=== PATIENT | male | born 1965 | race Hispanic/Latino ===

== ENCOUNTER → 2021-05-31 | Outpatient (CLI) | payer BC ==
[~2021-05-31] MED LIST: ALBUMIN (HUMAN) 25% 200 ML IV SCH; LIDOCAINE HCL MPF 1% 5ML VIAL ONE
[2021-05-31 15:25] LABS: APPEARANCE BODY FLUID SLIGHTLY CLOUDY (CLEAR); COLOR,BODY FLUID YELLOW (LT YELLOW); SPECIMENTYPE,BODY FLUID ASCITES
[2021-05-31 15:26] LABS: BODY FLUID RBC 485 /cu. mm.; BODY FLUID WBC 25 /cu. mm.; TOTAL VOLUME,BODY FLUID 10024 mL
[2021-05-31 16:07] LABS: BF LYMPHOCYTE 19 %; BF MESOTHELIAL 1 %; BF MONOCYTE 2 %; BF OTHER CELLS 4
== END | disposition home or self-care (01) ==
LOC: RAH 07:29
PROVIDERS: ATTEND Internal Medicine Gastroenterology
DX: K70.31 Alcoholic cirrhosis of liver with ascites (principal); K76.6 Portal hypertension; Z79.899 Other long term (current) drug therapy; Z79.01 Long term (current) use of anticoagulants
CPT/HCPCS: 36415; 49083; 85730; 87071; 87205; 89051; C1729; J3490 ×2; 96365

== ENCOUNTER 2021-11-24 11:16 | Emergency (ER) | payer BC ==
[~2021-11-24] VITALS: Ht 162.6 cm; Wt 90.7 kg
[~2021-11-24 11:16] MED LIST changes: -ALBUMIN (HUMAN) 25% 200 ML IV SCH; +LACT10SO32 PO; -LIDOCAINE HCL MPF 1% 5ML VIAL ONE
[2021-11-24 11:50] LABS: BASOPHILS % (AUTO) 0.6 % (0.0-5.0); EOSINOPHILS % (AUTO) 4.3 % (0.0-8.0); HEMATOCRIT 30.7 % (42-54); LYMPHOCYTES % (AUTO) 20.6 % (21.0-51.0); MEAN CORPUSCULAR HEMOGLOBIN 37.8 pg (27.0-33.0); MEAN CORPUSCULAR HGB CONC 34.9 g/dL (32.0-36.0); MEAN CORPUSCULAR VOLUME 108.5 fL (79-99); MONOCYTES % (AUTO) 9.9 % (3.0-13.0); NEUTROPHILS % (AUTO) 64.3 % (40.0-77.0); PLATELET COUNT (AUTO) 44 K/uL (130-400); RED BLOOD CELL COUNT(AUTO) 2.83 MIL/uL (4.50-6.20); RED CELL DISTRIBUTION WIDTH 17.6 % (11.0-15.5); WHITE BLOOD COUNT (AUTO) 3.5 K/uL (4.8-10.8)
[2021-11-24 11:59] LABS: INR 2.14 (0.85-1.15); PROTHROMBIN TIME 22.3 SEC (9.6-11.6)
[2021-11-24 12:00] LABS: PARTIAL THROMBOPLASTIN TIME 48.5 SEC (26.3-35.5)
[2021-11-24 12:08] LABS: CREATININE 0.8 mg/dL (0.5-1.5); POTASSIUM 3.5 mmol/L (3.5-5.1)
[2021-11-24 12:13] LABS: ALBUMIN 1.8 g/dL (3.5-5.0); TOTAL PROTEIN, SERUM 8.3 g/dL (6.0-8.3)
[2021-11-24 12:22] LABS: B-TYPE NATRIURETIC PEPTIDE 37 pg/mL (0-100)
[2021-11-24 13:07] LABS: PLATELET MORPHOLOGY COMMENT MARKED DECREASE
[2021-11-24] MEDS ORDERED: ALBUMIN (HUMAN) 25% 200 ML IV ONE (13:57)
[2021-11-24] MEDS ORDERED: SODIUM BICARB 50MEQ 50ML VIAL 50 ML ONE (13:57)
[2021-11-24] MEDS ORDERED: ALBUMIN (HUMAN) 25% 300 ML IV ONE (14:30)
[2021-11-24] MEDS ORDERED: CIPR-279 PO (16:24)
[2021-11-24 16:25] VITALS: BP 136/74
[2021-11-24 18:13] LABS: SPECIMENTYPE,BODY FLUID ASCITES
[2021-11-24 18:14] LABS: APPEARANCE BODY FLUID SLIGHTLY CLOUDY (CLEAR); BODY FLUID RBC 692 /cu. mm.; BODY FLUID WBC 67 /cu. mm.; COLOR,BODY FLUID YELLOW (LT YELLOW); TOTAL VOLUME,BODY FLUID 9200 mL
[2021-11-24 18:19] LABS: BF LYMPHOCYTE 16 %; BF MONOCYTE 1 %; BF OTHER CELLS 5
== END 2021-11-24 16:28 | disposition left against medical advice (07) ==
LOC: EDH 11:16
DX: K76.82 Hepatic encephalopathy (principal); K74.60 Unspecified cirrhosis of liver; R18.8 Other ascites; I10 Essential (primary) hypertension
CPT/HCPCS: 49083; 99285; 96365; 71045; 84484; 80053; 83880; 85025; 89051; 85610; 85730; 87071; 87205; 36415; 93005; P9046; J3490; C1729

== ENCOUNTER 2021-12-27 13:23 | Observation (INO) | payer BC ==
[~2021-12-27] VITALS: Ht 165.1 cm; Wt 72.9 kg
[~2021-12-27 13:23] MED LIST changes: +CIPR-279 PO
[2021-12-27 14:30] LABS: BASOPHILS % (AUTO) 0.6 % (0.0-5.0); EOSINOPHILS % (AUTO) 1.8 % (0.0-8.0); HEMATOCRIT 32.6 % (42-54); MEAN CORPUSCULAR HEMOGLOBIN 37.1 pg (27.0-33.0); MEAN CORPUSCULAR HGB CONC 35.3 g/dL (32.0-36.0); MEAN CORPUSCULAR VOLUME 105.2 fL (79-99); MONOCYTES % (AUTO) 8.6 % (3.0-13.0); NEUTROPHILS % (AUTO) 80.4 % (40.0-77.0); PLATELET COUNT (AUTO) 74 K/uL (130-400); RED CELL DISTRIBUTION WIDTH 15.2 % (11.0-15.5); WHITE BLOOD COUNT (AUTO) 5.1 K/uL (4.8-10.8)
[2021-12-27 14:38] LABS: CREATININE 0.9 mg/dL (0.5-1.5); POTASSIUM 4.5 mmol/L (3.5-5.1)
[2021-12-27 14:43] LABS: ALBUMIN 2.3 g/dL (3.5-5.0); TOTAL PROTEIN, SERUM 9.6 g/dL (6.0-8.3)
[2021-12-27] MEDS ORDERED: LACTULOSE 20 GM/30 ML UDCUP PO ONE (15:30)
[2021-12-27] MEDS ORDERED: 0.9%NACL 1000ML 1,000 ML IV ONE (15:30)
[2021-12-27] MEDS ORDERED: NITROGLYCERIN 0.4 MG SL TAB SL PRN (16:00)
[2021-12-27] MEDS ORDERED: DIPHENHYDRAMINE HCL 25 MG CAPSULE PO PRN (16:00)
[2021-12-27] MEDS ORDERED: ACETAMINOPHEN 325 MG TAB PO PRN ×2 (16:00)
[2021-12-27] MEDS ORDERED: LACTULOSE 20 GM/30 ML UDCUP PO PRN ×2 (16:00)
[2021-12-27] MEDS ORDERED: MAG/ALUM/SIMETH 30 ML UDCUP PO PRN (16:00)
[2021-12-27] MEDS ORDERED: DiphenhydrAMINE HCL 50 MG/ML VIAL IV PRN (16:00)
[2021-12-27] MEDS ORDERED: POTASSIUM CHLORIDE 10% ELIXIR 20 MEQ/15 ML UDCUP PO PRN (16:00)
[2021-12-27] MEDS ORDERED: LIDOCAINE HCL-MPF 1% 2ML VIAL IV PRN (16:00)
[2021-12-27] MEDS ORDERED: KCL 20 MEQ ERTAB PO PRN (16:00)
[2021-12-27] MEDS ORDERED: GUAIFENESIN-DM 200/20 MG 10 ML PO PRN (16:00)
[2021-12-27] MEDS ORDERED: POTASSIUM CHLORIDE 20MEQ/100ML 100 ML IV PRN (16:00)
[2021-12-27] MEDS ORDERED: ONDANSETRON 4MG INJ IV PRN (16:00)
[2021-12-27 17:57] LABS: APPEARANCE,URINE CLEAR (CLEAR); BILIRUBIN,URINE NEGATIVE (NEGATIVE); COLOR,URINE YELLOW (YELLOW); GLUCOSE, URINE (UA) NEGATIVE (NEGATIVE); KETONES,URINE NEGATIVE (NEGATIVE); LEUKOCYTE ESTERASE ,URINE NEGATIVE Leu/uL (NEGATIVE); NITRATE,URINE NEGATIVE (NEGATIVE); OCCULT BLOOD,URINE NEGATIVE (NEGATIVE); PROTEIN,URINE NEGATIVE (NEGATIVE); UROBILINOGEN,URINE 0.2 mg/dL (0.2-1.0)
[2021-12-27 18:06] LABS: BACTERIA,URINE RARE /HPF (None Seen); MUCUS,URINE RARE LPF (None Seen); SQUAMOUS EPITHELIAL CELL,UR RARE /HPF (0-2)
[2021-12-27] MEDS: MAGNESIUM 2GM PREMIX 50ML 50 ML IV PRN (18:43)
[2021-12-27 19:54] LABS: INR 1.82 (0.85-1.15); PROTHROMBIN TIME 19.2 SEC (9.6-11.6)
[2021-12-27 19:55] LABS: PARTIAL THROMBOPLASTIN TIME 47.3 SEC (26.3-35.5)
[2021-12-27] MEDS: FAMOTIDINE 20MG TAB PO SCH (21:00)
[2021-12-27] MEDS: RIFAXIMIN 200 MG TABLET PO SCH (21:04)
[2021-12-27] MEDS: FAMOTIDINE 20MG VIAL IV SCH (21:04)
[2021-12-27 23:10] VITALS: BP 129/75
[2021-12-28 03:50] VITALS: BP 136/72
[2021-12-28 04:59] LABS: BASOPHILS % (AUTO) 0.5 % (0.0-5.0); EOSINOPHILS % (AUTO) 2.5 % (0.0-8.0); HEMATOCRIT 27.5 % (42-54); LYMPHOCYTES % (AUTO) 8.3 % (21.0-51.0); MEAN CORPUSCULAR HEMOGLOBIN 36.5 pg (27.0-33.0); MEAN CORPUSCULAR HGB CONC 34.9 g/dL (32.0-36.0); MEAN CORPUSCULAR VOLUME 104.6 fL (79-99); MONOCYTES % (AUTO) 12.4 % (3.0-13.0); NEUTROPHILS % (AUTO) 75.6 % (40.0-77.0); PLATELET COUNT (AUTO) 60 K/uL (130-400); RED BLOOD CELL COUNT(AUTO) 2.63 MIL/uL (4.50-6.20); RED CELL DISTRIBUTION WIDTH 15.4 % (11.0-15.5); WHITE BLOOD COUNT (AUTO) 4.3 K/uL (4.8-10.8)
[2021-12-28 05:20] LABS: ALBUMIN 1.9 g/dL (3.5-5.0); CREATININE 0.7 mg/dL (0.5-1.5); MAGNESIUM 1.6 mg/dL (1.80-2.40); PHOSPHORUS 2.8 mg/dL (2.5-4.9); POTASSIUM 4.6 mmol/L (3.5-5.1); TOTAL PROTEIN, SERUM 8.2 g/dL (6.0-8.3)
[2021-12-28] MEDS: MAGNESIUM 2GM PREMIX 50ML 50 ML IV PRN (06:19)
[2021-12-28 08:00] VITALS: BP 121/75
[2021-12-28] MEDS: FAMOTIDINE 20MG TAB PO SCH ×2 (08:26→22:31)
[2021-12-28] MEDS: FUROSEMIDE 40 MG TABLET PO SCH (08:27)
[2021-12-28] MEDS: CYANOCOBALAMIN (VITAMIN B-12) 1,000 MCG TABLET PO SCH (08:27)
[2021-12-28] MEDS: SPIRONOLACTONE 25 MG TAB PO SCH (08:27)
[2021-12-28] MEDS: Vitamin B Complex/Vit C/Folic Acid PO SCH (08:27)
[2021-12-28] MEDS: FAMOTIDINE 20MG VIAL IV SCH (09:00)
[2021-12-28] MEDS: RIFAXIMIN 200 MG TABLET PO SCH ×2 (11:18→22:31)
[2021-12-28 12:00] VITALS: BP 131/69
[2021-12-28] MEDS: LACTULOSE 20 GM/30 ML UDCUP PO SCH ×2 (14:25→22:31)
[2021-12-28 16:00] VITALS: BP 110/62
[2021-12-28 20:30] VITALS: BP 118/62
[2021-12-28 23:37] VITALS: BP 96/48
[2021-12-29 02:55] VITALS: BP 119/66
[2021-12-29 03:48] LABS: BASOPHILS % (AUTO) 0.5 % (0.0-5.0); EOSINOPHILS % (AUTO) 2.1 % (0.0-8.0); HEMATOCRIT 26.8 % (42-54); LYMPHOCYTES % (AUTO) 8.6 % (21.0-51.0); MEAN CORPUSCULAR HEMOGLOBIN 36.7 pg (27.0-33.0); MEAN CORPUSCULAR HGB CONC 35.1 g/dL (32.0-36.0); MEAN CORPUSCULAR VOLUME 104.7 fL (79-99); NEUTROPHILS % (AUTO) 72.5 % (40.0-77.0); PLATELET COUNT (AUTO) 49 K/uL (130-400); RED BLOOD CELL COUNT(AUTO) 2.56 MIL/uL (4.50-6.20); RED CELL DISTRIBUTION WIDTH 15.2 % (11.0-15.5); WHITE BLOOD COUNT (AUTO) 3.8 K/uL (4.8-10.8)
[2021-12-29 04:06] LABS: ALBUMIN 1.9 g/dL (3.5-5.0); CREATININE 0.7 mg/dL (0.5-1.5); POTASSIUM 4.2 mmol/L (3.5-5.1); TOTAL PROTEIN, SERUM 7.8 g/dL (6.0-8.3)
[2021-12-29] MEDS: FAMOTIDINE 20MG VIAL IV SCH (08:12)
[2021-12-29 08:22] VITALS: BP 124/67
[2021-12-29] MEDS: CYANOCOBALAMIN (VITAMIN B-12) 1,000 MCG TABLET PO SCH (10:10)
[2021-12-29] MEDS: Vitamin B Complex/Vit C/Folic Acid PO SCH (10:10)
[2021-12-29] MEDS: RIFAXIMIN 200 MG TABLET PO SCH (10:10)
[2021-12-29] MEDS: LACTULOSE 20 GM/30 ML UDCUP PO SCH (10:10)
[2021-12-29] MEDS: SPIRONOLACTONE 25 MG TAB PO SCH (10:10)
[2021-12-29] MEDS: FAMOTIDINE 20MG TAB PO SCH (10:10)
[2021-12-29] MEDS: FUROSEMIDE 40 MG TABLET PO SCH (10:10)
[2021-12-29] MEDS ORDERED: FURO40TA7 PO (10:43)
[2021-12-29] MEDS ORDERED: LACT PO (10:43)
[2021-12-29] MEDS ORDERED: Folic Acid/Vitamin B Comp W-C PO (10:43)
[2021-12-29] MEDS ORDERED: RIFA200T2 PO (10:43)
[2021-12-29] MEDS ORDERED: SPIR25TA6 PO (10:43)
[2021-12-29] MEDS ORDERED: CYAN-52 PO (10:43)
[2021-12-29 12:15] VITALS: BP 113/74
== END 2021-12-29 13:40 | disposition home or self-care (01) ==
LOC: EDH 13:23 → EDHIP 15:53 → 3DH 23:10
PROVIDERS: ADMIT Internal Medicine; ATTEND Internal Medicine
DX: K76.82 Hepatic encephalopathy (principal); K70.30 Alcoholic cirrhosis of liver without ascites; D64.9 Anemia, unspecified; I10 Essential (primary) hypertension; E87.1 Hypo-osmolality and hyponatremia; J90 Pleural effusion, not elsewhere classified; J98.11 Atelectasis; K08.9 Disorder of teeth and supporting structures, unspecified; Z87.891 Personal history of nicotine dependence; Z79.899 Other long term (current) drug therapy
CPT/HCPCS: 96361; 96365; 96366; 96375; 99285; 83735 ×2; 80053 ×3; 82140 ×2; 85025 ×3; 85610; 85730; 81001; 36415 ×3; 71045; 70450; 72125; 70486; 93005; 96376; 84100; 97161; G0378 ×46; J3475 ×2; J3490 ×2; J7030

== ENCOUNTER 2022-03-26 07:39 | Emergency (ER) | payer BC, OTHER ==
[~2022-03-26] VITALS: Ht 162.6 cm; Wt 79.5 kg
[~2022-03-26 07:39] MED LIST changes: -CIPR-279 PO; +CYAN-52 PO; +FURO40TA7 PO; +Folic Acid/Vitamin B Comp W-C PO; -LACT10SO32 PO; +LACT10SO5 PO; +SPIR100T5 PO
[2022-03-26 08:23] LABS: BASOPHILS % (AUTO) 0.4 % (0.0-5.0); HEMATOCRIT 24.7 % (42-54); LYMPHOCYTES % (AUTO) 6.8 % (21.0-51.0); MEAN CORPUSCULAR HEMOGLOBIN 37.8 pg (27.0-33.0); MEAN CORPUSCULAR HGB CONC 34.4 g/dL (32.0-36.0); MEAN CORPUSCULAR VOLUME 109.8 fL (79-99); MONOCYTES % (AUTO) 13.8 % (3.0-13.0); NEUTROPHILS % (AUTO) 76.1 % (40.0-77.0); PLATELET COUNT (AUTO) 81 K/uL (130-400); RED BLOOD CELL COUNT(AUTO) 2.25 MIL/uL (4.50-6.20); RED CELL DISTRIBUTION WIDTH 16.4 % (11.0-15.5); WHITE BLOOD COUNT (AUTO) 8.1 K/uL (4.8-10.8)
[2022-03-26 08:33] LABS: ALBUMIN 1.6 g/dL (3.5-5.0); CREATININE 0.8 mg/dL (0.5-1.5); POTASSIUM 4.5 mmol/L (3.5-5.1)
[2022-03-26 08:36] LABS: TOTAL PROTEIN, SERUM 7.2 g/dL (6.0-8.3)
[2022-03-26 08:47] LABS: INR 1.86 (0.85-1.15); PROTHROMBIN TIME 19.6 SEC (9.6-11.6)
[2022-03-26 12:41] VITALS: BP 119/56
== END 2022-03-26 12:44 | disposition home or self-care (01) ==
LOC: EDH 07:39
DX: E87.1 Hypo-osmolality and hyponatremia (principal); R18.8 Other ascites; K74.60 Unspecified cirrhosis of liver; Z79.899 Other long term (current) drug therapy
CPT/HCPCS: 36415; 80053; 85025; 85610

== ENCOUNTER → 2022-03-30 | Outpatient (CLI) | payer OTHER ==
[~2022-03-30] MED LIST changes: +ALBUMIN (HUMAN) 25% 200 ML IV SCH
[2022-03-30 11:43] LABS: INR 1.84 (0.85-1.15); PROTHROMBIN TIME 19.4 SEC (9.6-11.6)
[2022-03-30 11:44] LABS: PARTIAL THROMBOPLASTIN TIME 55.8 SEC (26.3-35.5)
[2022-03-30 17:29] LABS: BF LYMPHOCYTE 42 %; BF MESOTHELIAL 31 %
[2022-03-30 18:06] LABS: BODY FLUID RBC 935 /cu. mm.; BODY FLUID WBC 202 /cu. mm.
[2022-03-30 18:07] LABS: APPEARANCE BODY FLUID SLIGHTLY CLOUDY (CLEAR); COLOR,BODY FLUID YELLOW (LT YELLOW); SPECIMENTYPE,BODY FLUID ASCITES
[2022-03-30 18:08] LABS: TOTAL VOLUME,BODY FLUID 9000 mL
== END | disposition home or self-care (01) ==
LOC: RAH 10:29
PROVIDERS: ATTEND Internal Medicine Gastroenterology
DX: K70.31 Alcoholic cirrhosis of liver with ascites (principal); K76.6 Portal hypertension; Z79.01 Long term (current) use of anticoagulants; Z79.899 Other long term (current) drug therapy; Z87.891 Personal history of nicotine dependence
CPT/HCPCS: 49083; 89051; 85610; 85730; 87071; 87205; 36415; P9046; C1729

== ENCOUNTER 2022-04-21 04:57 | Inpatient (IN) | payer BC, OTHER ==
[~2022-04-21] VITALS: Ht 162.6 cm; Wt 75.7 kg
[2022-04-21] VITALS (13 sets, daily range): BP systolic 72–156; BP diastolic 40–103
[~2022-04-21 04:57] MED LIST changes: -ALBUMIN (HUMAN) 25% 200 ML IV SCH
[2022-04-21 05:39] LABS: BASOPHILS % (AUTO) 0.1 % (0.0-5.0); EOSINOPHILS % (AUTO) 1.6 % (0.0-8.0); HEMATOCRIT 24.2 % (42-54); LYMPHOCYTES % (AUTO) 4.9 % (21.0-51.0); MEAN CORPUSCULAR HEMOGLOBIN 38.5 pg (27.0-33.0); MEAN CORPUSCULAR HGB CONC 34.7 g/dL (32.0-36.0); MONOCYTES % (AUTO) 6.9 % (3.0-13.0); NEUTROPHILS % (AUTO) 85.6 % (40.0-77.0); PLATELET COUNT (AUTO) 91 K/uL (130-400); RED BLOOD CELL COUNT(AUTO) 2.18 MIL/uL (4.50-6.20); RED CELL DISTRIBUTION WIDTH 15.7 % (11.0-15.5); WHITE BLOOD COUNT (AUTO) 7.5 K/uL (4.8-10.8)
[2022-04-21 05:42] LABS: APPEARANCE,URINE TURBID (CLEAR); BILIRUBIN,URINE 4 mg/dL (NEGATIVE); COLOR,URINE DARK-YELLOW (YELLOW); GLUCOSE, URINE (UA) NEGATIVE (NEGATIVE); KETONES,URINE NEGATIVE (NEGATIVE); LEUKOCYTE ESTERASE ,URINE 75 Leu/uL (NEGATIVE); NITRATE,URINE NEGATIVE (NEGATIVE); OCCULT BLOOD,URINE SMALL (NEGATIVE); PH,URINE 5.5 (5.0-8.0); PROTEIN,URINE 70 mg/dL (NEGATIVE)
[2022-04-21 05:53] LABS: ALBUMIN 1.6 g/dL (3.5-5.0); CREATININE 1.1 mg/dL (0.5-1.5); POTASSIUM 5.6 mmol/L (3.5-5.1)
[2022-04-21 05:57] LABS: BACTERIA,URINE RARE /HPF (None Seen); MUCUS,URINE MANY LPF (None Seen); SQUAMOUS EPITHELIAL CELL,UR RARE /HPF (0-2)
[2022-04-21 06:00] LABS: TOTAL PROTEIN, SERUM 6.6 g/dL (6.0-8.3)
[2022-04-21 06:18] LABS: INR 1.84 (0.85-1.15); PROTHROMBIN TIME 19.4 SEC (9.6-11.6)
[2022-04-21 06:20] LABS: PARTIAL THROMBOPLASTIN TIME 29.7 SEC (26.3-35.5)
[2022-04-21 07:17] LABS: BAND NEUTROPHILS % (MANUAL) 3 % (0-2); BASOPHILS % (MANUAL) 1 % (0-2); EOSINOPHILS % (MANUAL) 1 % (1-6); LYMPHOCYTES % (MANUAL) 3 % (22-44); MAN.DIFF COMMENT-IMPRESSION MANUAL DIFFERENTIAL; MONOCYTES % (MANUAL) 7 % (2-9); PLATELET MORPHOLOGY COMMENT DECREASED; SEGMENTED NEUTROPHILS % 85 % (40-70)
[2022-04-21] MEDS ORDERED: LACTULOSE 20 GM/30 ML UDCUP PO PRN ×3 (08:30→10:00)
[2022-04-21] MEDS ORDERED: GUAIFENESIN-DM 200/20 MG 10 ML PO PRN (08:30)
[2022-04-21] MEDS ORDERED: NITROGLYCERIN 0.4 MG SL TAB SL PRN (08:30)
[2022-04-21] MEDS ORDERED: DiphenhydrAMINE HCL 50 MG/ML VIAL IV PRN (08:30)
[2022-04-21] MEDS ORDERED: ONDANSETRON 4MG INJ IV PRN (08:30)
[2022-04-21] MEDS ORDERED: LIDOCAINE HCL-MPF 1% 2ML VIAL IV PRN (08:30)
[2022-04-21] MEDS ORDERED: POTASSIUM CHLORIDE 20MEQ/100ML 100 ML IV PRN (08:30)
[2022-04-21] MEDS ORDERED: MAGNESIUM 2GM PREMIX 50ML 50 ML IV PRN (08:30)
[2022-04-21] MEDS ORDERED: MAG/ALUM/SIMETH 30 ML UDCUP PO PRN (08:30)
[2022-04-21] MEDS ORDERED: DIPHENHYDRAMINE HCL 25 MG CAPSULE PO PRN (08:30)
[2022-04-21] MEDS ORDERED: ACETAMINOPHEN 325 MG TAB PO PRN ×2 (08:30)
[2022-04-21] MEDS ORDERED: KCL 20 MEQ ERTAB PO PRN (08:30)
[2022-04-21] MEDS ORDERED: FAMOTIDINE 20MG VIAL IV ONE (08:50)
[2022-04-21] MEDS ORDERED: 0.9%NACL 1000ML 1,000 ML IV ONE (08:50)
[2022-04-21] MEDS ORDERED: FUROSEMIDE 20MG VIAL ONE (08:50)
[2022-04-21] MEDS ORDERED: CEFTRIAXONE 1G VIAL ONE (08:50)
[2022-04-21] MEDS: FUROSEMIDE 40 MG TABLET PO SCH (09:00)
[2022-04-21] MEDS: FAMOTIDINE 20MG TAB PO SCH ×2 (09:00→20:38)
[2022-04-21] MEDS: 0.9%NACL 1000ML 1,000 ML IV SCH ×2 (09:10→16:47)
[2022-04-21] MEDS: FAMOTIDINE 20MG VIAL IV SCH ×2 (09:11→20:51)
[2022-04-21] MEDS: CEFTRIAXONE 1G VIAL IV SCH (09:11)
[2022-04-21] MEDS ORDERED: FUROSEMIDE 40MG VIAL ONE (09:15)
[2022-04-21] MEDS ORDERED: ALBUMIN (HUMAN) 25% 100 ML IV ONE ×2 (09:57→17:00)
[2022-04-21] MEDS ORDERED: LACTULOSE 20 GM/30 ML UDCUP ONE (09:59)
[2022-04-21] MEDS ORDERED: ALBUMIN (HUMAN) 25% 100 ML IV PRN (10:00)
[2022-04-21] MEDS: RIFAXIMIN 200 MG TABLET PO SCH ×2 (10:04→20:58)
[2022-04-21 10:29] LABS: AMPHET/METH SCREEN,URINE NEGATIVE (NEGATIVE); BARBITURATE SCREEN, URINE NEGATIVE (NEGATIVE); BENZODIAZEPINES SCREEN,URINE NEGATIVE (NEGATIVE); CANNABINOID SCREEN,URINE NEGATIVE (NEGATIVE); COCAINE SCREEN,URINE NEGATIVE (NEGATIVE); OPIATE SCREEN,URINE NEGATIVE (NEGATIVE); PHENCYCLIDINE SCREEN,URINE NEGATIVE (NEGATIVE)
[2022-04-21] MEDS ORDERED: ROCURONIUM BROMIDE 10MG/1ML 5ML VL IV ONE (10:32)
[2022-04-21] MEDS ORDERED: SUCCINYLCHOLINE CHLORIDE 20 MG/ML 10 ML VIAL IVP ONE (10:32)
[2022-04-21 10:36] LABS: CREATININE 1.3 mg/dL (0.5-1.5); POTASSIUM 5.4 mmol/L (3.5-5.1)
[2022-04-21 18:22] LABS: ALBUMIN,BODY FLUID 0.1 g/dL
[2022-04-21 19:57] LABS: BODY FLUID RBC 3256 /cu. mm.; BODY FLUID WBC 8899 /cu. mm.
[2022-04-21 19:58] LABS: APPEARANCE BODY FLUID CLOUDY (CLEAR); COLOR,BODY FLUID DARK YELLOW (LT YELLOW); SPECIMENTYPE,BODY FLUID ASCITES; TOTAL VOLUME,BODY FLUID 6000 mL
[2022-04-21 20:16] LABS: BF LYMPHOCYTE 5 %; BF MONOCYTE 1 %; BF OTHER CELLS 1
[2022-04-21] MEDS: LACTULOSE 20 GM/30 ML UDCUP PO SCH (20:51)
[2022-04-21] MEDS: ALBUMIN (HUMAN) 25% 100 ML IV SCH (23:30)
[2022-04-21] MEDS ORDERED: PHARMACY COMMUNICATION MISC SCH (23:30)
[2022-04-22] VITALS (48 sets, daily range): BP systolic 65–145; BP diastolic 32–110
[2022-04-22] MEDS: 0.9%NACL 1000ML 1,000 ML IV SCH ×2 (01:26→08:24)
[2022-04-22 05:49] LABS: BASOPHILS % (AUTO) 0.1 % (0.0-5.0); EOSINOPHILS % (AUTO) 0.1 % (0.0-8.0); HEMATOCRIT 21.7 % (42-54); LYMPHOCYTES % (AUTO) 3.2 % (21.0-51.0); MEAN CORPUSCULAR HEMOGLOBIN 38.9 pg (27.0-33.0); MEAN CORPUSCULAR HGB CONC 33.2 g/dL (32.0-36.0); MEAN CORPUSCULAR VOLUME 117.3 fL (79-99); MONOCYTES % (AUTO) 7.7 % (3.0-13.0); NEUTROPHILS % (AUTO) 88.2 % (40.0-77.0); PLATELET COUNT (AUTO) 71 K/uL (130-400); RED BLOOD CELL COUNT(AUTO) 1.85 MIL/uL (4.50-6.20); RED CELL DISTRIBUTION WIDTH 15.8 % (11.0-15.5); WHITE BLOOD COUNT (AUTO) 14.5 K/uL (4.8-10.8)
[2022-04-22 06:26] LABS: ALBUMIN 2.3 g/dL (3.5-5.0); CREATININE 1.5 mg/dL (0.5-1.5); MAGNESIUM 1.8 mg/dL (1.80-2.40); PHOSPHORUS 6.8 mg/dL (2.5-4.9); POTASSIUM 5.7 mmol/L (3.5-5.1); TOTAL PROTEIN, SERUM 5.9 g/dL (6.0-8.3)
[2022-04-22 07:05] LABS: % IRON SATURATION 76.4 % (30-44)
[2022-04-22] MEDS ORDERED: DEXTROSE 50%-WATER 50 ML DISP.SYRIN IV PRN (08:00)
[2022-04-22] MEDS ORDERED: GLUCAGON 1MG KIT 1 MG ML IM PRN (08:00)
[2022-04-22] MEDS ORDERED: DEXTROSE 5 %-0.45 % NACL 1,000 ML IV SCH (08:00)
[2022-04-22] MEDS: FUROSEMIDE 40 MG TABLET PO SCH (10:03)
[2022-04-22] MEDS: RIFAXIMIN 200 MG TABLET PO SCH ×2 (10:03→21:00)
[2022-04-22] MEDS: FAMOTIDINE 20MG VIAL IV SCH (10:04)
[2022-04-22] MEDS: LACTULOSE 20 GM/30 ML UDCUP PO SCH (10:04)
[2022-04-22] MEDS: HYDROCORTISONE SOD SUCCINATE 100 MG/2 ML VIAL IV SCH ×2 (10:04→10:13)
[2022-04-22] MEDS: CEFTRIAXONE 1G VIAL IV SCH (10:13)
[2022-04-22] MEDS: FAMOTIDINE 20MG TAB PO SCH (10:13)
[2022-04-22] MEDS: ALBUMIN (HUMAN) 25% 100 ML IV SCH ×3 (10:25→23:34)
[2022-04-22] MEDS ORDERED: ALBUMIN (HUMAN) 25% 100 ML IV PRN (10:30)
[2022-04-22] MEDS ORDERED: FUROSEMIDE 40MG VIAL IV STA (17:21)
[2022-04-22] MEDS ORDERED: DEXTROSE 10% IV SCH (17:30)
[2022-04-22] MEDS ORDERED: WATER IV SCH ×2 (17:30→21:30)
[2022-04-22] MEDS ORDERED: SODIUM CL IV SCH (17:30)
[2022-04-22 18:14] LABS: ABG BASE EXCESS -15.5 mmol/L (-2.0-3.0); ABG HCO3 15.4 mmol/L (21.0-28.0); ABG OXYGEN SATURATION 91.4 % (95.0-99.0); ABG PCO2 57 mmHg (35-48)
[2022-04-22] MEDS ORDERED: PHARMACY COMMUNICATION MISC SCH (19:00)
[2022-04-22] MEDS ORDERED: VANCOMYCIN 1G VIAL IVPB ONE (19:00)
[2022-04-22] MEDS ORDERED: DEXTROSE 5%-WATER 1,000 ML IV SCH (19:00)
[2022-04-22] MEDS ORDERED: LIDOCAINE HCL MPF 1% 5ML VIAL ONE ×2 (19:20→19:25)
[2022-04-22] MEDS ORDERED: VANCOMYCIN 1.75 GM/250 ML BAG 250 ML IV ONE (19:30)
[2022-04-22] MEDS ORDERED: VANCOMYCIN PROTOCOL PER PHARMACY IV SCH (19:30)
[2022-04-22] MEDS ORDERED: SODIUM BICARB 50MEQ 50ML VIAL IV ONE (19:30)
[2022-04-22] MEDS ORDERED: EPINEPHRINE PF 1MG (1:1,000) 1 MG/ML AMP ONE ×2 (19:56→21:42)
[2022-04-22] MEDS ORDERED: SODIUM BICARB 8.4% 50ML SYRINGE IVP SCH (20:00)
[2022-04-22] MEDS ORDERED: WATER IVP SCH (20:30)
[2022-04-22] MEDS ORDERED: SODIUM BICARB IVP SCH (20:30)
[2022-04-22] MEDS ORDERED: DEXTROSE 5% IVP SCH (20:30)
[2022-04-22] MEDS ORDERED: NOREPINEPHRIN 4MG/NS 250ML 250 ML IV SCH (20:30)
[2022-04-22] MEDS ORDERED: VASOPRESSIN 40 UNITS in 0.9%NACL 50ML 40 ML IV SCH (21:00)
[2022-04-22 21:04] LABS: ABG HCO3 18.4 mmol/L (21.0-28.0); ABG OXYGEN SATURATION 98.1 % (95.0-99.0); ABG PCO2 45 mmHg (35-48)
[2022-04-22] MEDS ORDERED: SODIUM BICARB 8.4% IV SCH (21:30)
[2022-04-22] MEDS ORDERED: SYRING IV SCH (21:30)
[2022-04-22] MEDS ORDERED: DEXTROSE 5% IV SCH (21:30)
[2022-04-22] MEDS ORDERED: SODIUM BICARB 8.4% 50ML SYRING 100 MEQ in DEXTROSE 5%-WATER 1,050 ML IVP SCH (21:30)
[2022-04-22 21:32] LABS: HEMATOCRIT 19.8 % (42-54)
[2022-04-22 21:35] LABS: ALBUMIN 2.8 g/dL (3.5-5.0); CREATININE 2.1 mg/dL (0.5-1.5); TOTAL PROTEIN, SERUM 5.7 g/dL (6.0-8.3)
[2022-04-22] MEDS ORDERED: PROPOFOL 1000 MG/100 ML 100 ML IV ONE (21:41)
[2022-04-22 21:47] LABS: INR 3.56 (0.85-1.15); PARTIAL THROMBOPLASTIN TIME > 139.0 SEC (26.3-35.5); PROTHROMBIN TIME 36.1 SEC (9.6-11.6)
[2022-04-22 21:48] LABS: POTASSIUM 5.9 mmol/L (3.5-5.1)
[2022-04-22] MEDS ORDERED: PROPOFOL 10 MG/ML 20ML VIAL IV ONE (21:48)
[2022-04-22] MEDS ORDERED: SUCCINYLCHOLINE 200MG/10ML SYR ONE (21:48)
[2022-04-22] MEDS ORDERED: ROCURONIUM 10MG/1ML SYR 10 MG/ML ML ONE (21:48)
[2022-04-22] MEDS ORDERED: FENTANYL CITRATE PF 50 MCG/1 ML 2ML VIAL ONE (21:49)
[2022-04-22] MEDS ORDERED: ALBUMIN (HUMAN) 5% 0 ML IV ONE (21:55)
[2022-04-22] MEDS ORDERED: PHYTONADIONE 10 MG/1 ML AMP ONE (21:55)
[2022-04-22] MEDS ORDERED: FUROSEMIDE 40MG VIAL IV SCH (22:00)
[2022-04-22] MEDS ORDERED: INSULIN HUMULIN R 100 UNIT/ML 3ML IV ONE (22:30)
[2022-04-22] MEDS ORDERED: CALCIUM GLUC 1GM/10ML VIAL IVPB ONE (22:30)
[2022-04-23] VITALS (80 sets, daily range): BP systolic 100–151; BP diastolic 40–83
[2022-04-23 00:25] LABS: ABG BASE EXCESS -3.6 mmol/L (-2.0-3.0); ABG OXYGEN SATURATION 99.7 % (95.0-99.0); ABG PCO2 29 mmHg (35-48)
[2022-04-23 01:05] LABS: BODY FLUID RBC 189069 /cu. mm.; BODY FLUID WBC 7430 /cu. mm.
[2022-04-23] MEDS: LACTULOSE 20 GM/30 ML UDCUP PR SCH ×2 (01:19→09:54)
[2022-04-23] MEDS ORDERED: SODIUM BICARB 50MEQ 50ML VIAL 100 ML ONE (01:44)
[2022-04-23] MEDS: PHARMACY COMMUNICATION MISC SCH ×3 (02:00→04:00)
[2022-04-23] MEDS ORDERED: SODIUM BICARB 8.4% 50ML SYRING 100 MEQ in DEXTROSE 5%-WATER 900 ML IVP SCH (02:00)
[2022-04-23 02:13] LABS: BASOPHILS % (AUTO) 0.1 % (0.0-5.0); EOSINOPHILS % (AUTO) 0.1 % (0.0-8.0); HEMATOCRIT 22.6 % (42-54); MEAN CORPUSCULAR HEMOGLOBIN 36.5 pg (27.0-33.0); MEAN CORPUSCULAR HGB CONC 33.6 g/dL (32.0-36.0); MEAN CORPUSCULAR VOLUME 108.7 fL (79-99); MONOCYTES % (AUTO) 10.4 % (3.0-13.0); NEUTROPHILS % (AUTO) 85.8 % (40.0-77.0); NUCLEATED RED BLOOD CELLS 0.2 % (0.0-0.19); PLATELET COUNT (AUTO) 59 K/uL (130-400); RED BLOOD CELL COUNT(AUTO) 2.08 MIL/uL (4.50-6.20); RED CELL DISTRIBUTION WIDTH 18.6 % (11.0-15.5)
[2022-04-23 02:27] LABS: APPEARANCE BODY FLUID TURBID (CLEAR); BF LYMPHOCYTE 2 %; COLOR,BODY FLUID RED (LT YELLOW); SPECIMENTYPE,BODY FLUID PLEURAL; TOTAL VOLUME,BODY FLUID 10 mL
[2022-04-23 02:28] LABS: BF MONOCYTE 2 %
[2022-04-23 02:30] LABS: ALBUMIN 3.1 g/dL (3.5-5.0); CREATININE 1.9 mg/dL (0.5-1.5); TOTAL PROTEIN, SERUM 5.8 g/dL (6.0-8.3)
[2022-04-23] MEDS ORDERED: DEXTROSE 50%-WATER 50 ML DISP.SYRIN IV ONE (02:30)
[2022-04-23] MEDS: DEXTROSE 50%-WATER 50 ML DISP.SYRIN IV ONE ×2 (02:32→03:10)
[2022-04-23] MEDS: MEROPENEM 1 GM VIAL IVP SCH ×3 (03:28→20:30)
[2022-04-23] MEDS: FAMOTIDINE 20MG VIAL IV SCH (03:29)
[2022-04-23] MEDS: HYDROCORTISONE SOD SUCCINATE 100 MG/2 ML VIAL IV SCH ×5 (03:29→20:30)
[2022-04-23] MEDS: VASOPRESSIN 20 UNITS/NS 100ML IV SCH ×6 (04:12→20:12)
[2022-04-23 04:21] LABS: ABG HCO3 21.2 mmol/L (21.0-28.0); ABG OXYGEN SATURATION 99.1 % (95.0-99.0); ABG PCO2 36 mmHg (35-48)
[2022-04-23] MEDS: PROPOFOL 1000 MG/100 ML IV PRN ×3 (04:25→11:23)
[2022-04-23] MEDS ORDERED: DEXTROSE 10%-WATER 1,000 ML IV SCH (04:30)
[2022-04-23 04:55] LABS: BASOPHILS % (AUTO) 0.1 % (0.0-5.0); EOSINOPHILS % (AUTO) 0.1 % (0.0-8.0); HEMATOCRIT 22.6 % (42-54); LYMPHOCYTES % (AUTO) 2.5 % (21.0-51.0); MEAN CORPUSCULAR HEMOGLOBIN 36.3 pg (27.0-33.0); MEAN CORPUSCULAR HGB CONC 34.1 g/dL (32.0-36.0); MEAN CORPUSCULAR VOLUME 106.6 fL (79-99); NEUTROPHILS % (AUTO) 85.5 % (40.0-77.0); NUCLEATED RED BLOOD CELLS 0.2 % (0.0-0.19); PLATELET COUNT (AUTO) 65 K/uL (130-400); RED BLOOD CELL COUNT(AUTO) 2.12 MIL/uL (4.50-6.20); RED CELL DISTRIBUTION WIDTH 19.9 % (11.0-15.5); WHITE BLOOD COUNT (AUTO) 15.9 K/uL (4.8-10.8)
[2022-04-23] MEDS: VANCOMYCIN 1G/250ML KIT 250 ML IV SCH ×2 (04:59→18:11)
[2022-04-23] MEDS ORDERED: VANCOMYCIN KIT 1 GM/250 ML IV.KIT IV ONE (05:00)
[2022-04-23 05:03] LABS: INR 1.96 (0.85-1.15); PROTHROMBIN TIME 20.6 SEC (9.6-11.6)
[2022-04-23 05:05] LABS: PARTIAL THROMBOPLASTIN TIME 55.2 SEC (26.3-35.5)
[2022-04-23] MEDS ORDERED: NOREPINEPHRINE 16MG/NS 250ML 250 ML IV ONE (05:06)
[2022-04-23] MEDS ORDERED: FENTANYL CITRATE PF 50 MCG/1 ML 2ML VIAL IVP PRN (05:30)
[2022-04-23] MEDS ORDERED: ALBUMIN (HUMAN) 25% 100 ML IV ONE (05:46)
[2022-04-23] MEDS ORDERED: ALBUTEROL 0.083% 2.5 MG/3 ML INH IH SCH (06:39)
[2022-04-23] MEDS: IPRATROPIUM/ALBUTEROL SULFATE 3 ML SOLUTION IH SCH ×3 (06:43→23:38)
[2022-04-23] MEDS ORDERED: NOREPINEPHRINE 16MG/NS 250ML PREMIX IV SCH (08:30)
[2022-04-23] MEDS: RIFAXIMIN 200 MG TABLET PO SCH ×2 (08:39→20:43)
[2022-04-23] MEDS: PANTOPRAZOLE 40 MG/VIAL IVP SCH ×2 (09:45→20:30)
[2022-04-23] MEDS ORDERED: 0.9%NACL 1000ML 1,185 ML IV SCH (11:30)
[2022-04-23] MEDS ORDERED: MIDAZOLAM 50MG-0.9% NS 50ML 50 ML BAG IV SCH ×2 (12:00→15:30)
[2022-04-23] MEDS ORDERED: FENTANYL 2500MCG+NS 250ML IV.SOLN IV SCH (12:00)
[2022-04-23] MEDS ORDERED: MIDAZOLAM 100MG-0.9% NS 100ML 100 ML IV SCH (12:30)
[2022-04-23 12:33] LABS: ABG BASE EXCESS -1.8 mmol/L (-2.0-3.0); ABG HCO3 20.6 mmol/L (21.0-28.0); ABG OXYGEN SATURATION 98.5 % (95.0-99.0); ABG PCO2 27 mmHg (35-48)
[2022-04-23] MEDS ORDERED: DEXMEDETOMIDINE 400MCG/NS100ML IV SCH (13:00)
[2022-04-23] MEDS: NOREPINEPHRINE 16MG/NS 250ML 250 ML IV SCH ×2 (13:06→19:59)
[2022-04-23 13:22] LABS: HEMATOCRIT 22.7 % (42-54)
[2022-04-23] MEDS: 0.9%NACL 1000ML 1,000 ML IV SCH ×3 (14:19→23:55)
[2022-04-23] MEDS: MIDODRINE HCL 5 MG TABLET PO SCH ×2 (14:22→20:30)
[2022-04-23] MEDS: ALBUMIN (HUMAN) 25% 100 ML IV SCH ×3 (14:22→23:55)
[2022-04-23] MEDS: FENTANYL 2500MCG+NS 250ML 250 ML IV SCH (16:19)
[2022-04-23] MEDS: MIDAZOLAM 100MG-0.9% NS 100ML 100 ML IV SCH (16:21)
[2022-04-23] MEDS: LACTULOSE 20 GM/30 ML UDCUP PO SCH ×2 (18:19→23:55)
[2022-04-24] VITALS (57 sets, daily range): BP systolic 102–135; BP diastolic 57–74
[2022-04-24] MEDS ORDERED: OXYMETAZOLINE HCL SPRAY 15 ML BOTTLE ONE (00:03)
[2022-04-24] MEDS: LACTULOSE 20 GM/30 ML UDCUP PO SCH ×3 (05:19→20:24)
[2022-04-24] MEDS: ALBUMIN (HUMAN) 25% 100 ML IV SCH ×2 (05:20→14:07)
[2022-04-24 05:26] LABS: BASOPHILS % (AUTO) 0.1 % (0.0-5.0); EOSINOPHILS % (AUTO) 0.1 % (0.0-8.0); HEMATOCRIT 22.8 % (42-54); LYMPHOCYTES % (AUTO) 4.9 % (21.0-51.0); MEAN CORPUSCULAR HEMOGLOBIN 34.2 pg (27.0-33.0); MEAN CORPUSCULAR HGB CONC 32.9 g/dL (32.0-36.0); MEAN CORPUSCULAR VOLUME 104.1 fL (79-99); MONOCYTES % (AUTO) 10.7 % (3.0-13.0); NEUTROPHILS % (AUTO) 82.9 % (40.0-77.0); PLATELET COUNT (AUTO) 39 K/uL (130-400); RED BLOOD CELL COUNT(AUTO) 2.19 MIL/uL (4.50-6.20); RED CELL DISTRIBUTION WIDTH 23.8 % (11.0-15.5); WHITE BLOOD COUNT (AUTO) 7.7 K/uL (4.8-10.8)
[2022-04-24 05:41] LABS: ALBUMIN 3.7 g/dL (3.5-5.0); CREATININE 1.2 mg/dL (0.5-1.5); POTASSIUM 3.3 mmol/L (3.5-5.1); TOTAL PROTEIN, SERUM 5.7 g/dL (6.0-8.3)
[2022-04-24] MEDS: VANCOMYCIN 1G/250ML KIT 250 ML IV SCH ×2 (06:23→17:58)
[2022-04-24] MEDS: POTASSIUM CHLORIDE 10% ELIXIR 20 MEQ/15 ML UDCUP PO PRN ×2 (06:23→10:13)
[2022-04-24] MEDS: IPRATROPIUM/ALBUTEROL SULFATE 3 ML SOLUTION IH SCH ×4 (07:00→23:38)
[2022-04-24] MEDS: VASOPRESSIN 20 UNITS/NS 100ML IV SCH ×2 (07:03)
[2022-04-24 08:17] LABS: HEMATOCRIT 20.9 % (42-54)
[2022-04-24 09:44] LABS: ABG BASE EXCESS -3.8 mmol/L (-2.0-3.0); ABG HCO3 20.4 mmol/L (21.0-28.0); ABG OXYGEN SATURATION 96.8 % (95.0-99.0); ABG PCO2 33 mmHg (35-48)
[2022-04-24] MEDS: RIFAXIMIN 200 MG TABLET PO SCH ×2 (10:12→20:25)
[2022-04-24] MEDS: MIDODRINE HCL 5 MG TABLET PO SCH ×3 (10:12→20:25)
[2022-04-24] MEDS: PANTOPRAZOLE 40 MG/VIAL IVP SCH ×2 (10:12→20:25)
[2022-04-24] MEDS: MEROPENEM 1 GM VIAL IVP SCH ×2 (10:12→20:24)
[2022-04-24] MEDS: HYDROCORTISONE SOD SUCCINATE 100 MG/2 ML VIAL IV SCH ×4 (10:12→20:25)
[2022-04-24] MEDS: NOREPINEPHRINE 16MG/NS 250ML 250 ML IV SCH (10:22)
[2022-04-24] MEDS: 0.9%NACL 1000ML 1,000 ML IV SCH ×2 (12:45→14:40)
[2022-04-24] MEDS: MIDAZOLAM 100MG-0.9% NS 100ML 100 ML IV SCH (18:05)
[2022-04-24 19:56] LABS: HEMATOCRIT 21.3 % (42-54)
[2022-04-24] MEDS: OCTREOTIDE ACETATE 100 MCG/ML AMP IV SCH (20:24)
[2022-04-24] MEDS: FENTANYL 2500MCG+NS 250ML 250 ML IV SCH (21:34)
[2022-04-25] VITALS (93 sets, daily range): BP systolic 90–136; BP diastolic 45–87
[2022-04-25] MEDS: LACTULOSE 20 GM/30 ML UDCUP PO SCH ×4 (00:16→18:17)
[2022-04-25 03:11] LABS: ABG BASE EXCESS -3.4 mmol/L (-2.0-3.0); ABG HCO3 20.5 mmol/L (21.0-28.0); ABG OXYGEN SATURATION 96.3 % (95.0-99.0); ABG PCO2 34 mmHg (35-48)
[2022-04-25 04:24] LABS: BASOPHILS % (AUTO) 0.2 % (0.0-5.0); LYMPHOCYTES % (AUTO) 5.2 % (21.0-51.0); MEAN CORPUSCULAR HEMOGLOBIN 35.2 pg (27.0-33.0); MEAN CORPUSCULAR HGB CONC 32.9 g/dL (32.0-36.0); MEAN CORPUSCULAR VOLUME 107.3 fL (79-99); NEUTROPHILS % (AUTO) 82.5 % (40.0-77.0); NUCLEATED RED BLOOD CELLS 0.3 % (0.0-0.19); PLATELET COUNT (AUTO) 50 K/uL (130-400); RED BLOOD CELL COUNT(AUTO) 1.93 MIL/uL (4.50-6.20); RED CELL DISTRIBUTION WIDTH 25.1 % (11.0-15.5); WHITE BLOOD COUNT (AUTO) 6.4 K/uL (4.8-10.8)
[2022-04-25 04:36] LABS: ALBUMIN 3.7 g/dL (3.5-5.0); CREATININE 1.1 mg/dL (0.5-1.5); POTASSIUM 3.3 mmol/L (3.5-5.1); TOTAL PROTEIN, SERUM 5.6 g/dL (6.0-8.3)
[2022-04-25] MEDS: VANCOMYCIN 1G/250ML KIT 250 ML IV SCH ×2 (05:15→16:51)
[2022-04-25] MEDS: POTASSIUM CHLORIDE 10% ELIXIR 20 MEQ/15 ML UDCUP PO PRN (05:25)
[2022-04-25 06:18] LABS: HEMATOCRIT 20.7 % (42-54)
[2022-04-25] MEDS: IPRATROPIUM/ALBUTEROL SULFATE 3 ML SOLUTION IH SCH ×4 (06:54→23:14)
[2022-04-25] MEDS: MEROPENEM 1 GM VIAL IVP SCH ×2 (08:15→20:10)
[2022-04-25] MEDS: HYDROCORTISONE SOD SUCCINATE 100 MG/2 ML VIAL IV SCH ×4 (08:19→21:10)
[2022-04-25] MEDS: OCTREOTIDE ACETATE 100 MCG/ML AMP IV SCH ×3 (08:19→21:11)
[2022-04-25] MEDS: PANTOPRAZOLE 40 MG/VIAL IVP SCH ×2 (08:19→20:11)
[2022-04-25] MEDS: MIDODRINE HCL 5 MG TABLET PO SCH ×3 (08:21→20:11)
[2022-04-25] MEDS: RIFAXIMIN 200 MG TABLET PO SCH ×2 (10:40→20:11)
[2022-04-25] MEDS ORDERED: DEXMEDETOMIDINE 400MCG/NS100ML IV SCH (11:30)
[2022-04-25 12:09] LABS: INR 2.38 (0.85-1.15); PROTHROMBIN TIME 24.7 SEC (9.6-11.6)
[2022-04-25 12:11] LABS: PARTIAL THROMBOPLASTIN TIME 74.6 SEC (26.3-35.5)
[2022-04-25] MEDS ORDERED: PHYTONADIONE 10 MG in 0.9%NACL 50ML 50 ML IVPB SCH (14:00)
[2022-04-25] MEDS ORDERED: PEG 3350/NA SULF,BICARB,CL/KCL 4000 ML SOLN PO SCH (15:00)
[2022-04-25] MEDS ORDERED: FUROSEMIDE 40MG VIAL IV ONE (20:00)
[2022-04-26] VITALS (83 sets, daily range): BP systolic 70–137; BP diastolic 35–84
[2022-04-26] MEDS: LACTULOSE 20 GM/30 ML UDCUP PO SCH ×4 (01:17→17:11)
[2022-04-26 03:13] LABS: ABG HCO3 20.4 mmol/L (21.0-28.0); ABG OXYGEN SATURATION 96.4 % (95.0-99.0); ABG PCO2 32 mmHg (35-48)
[2022-04-26] MEDS: VANCOMYCIN 1G/250ML KIT 250 ML IV SCH ×2 (06:00→18:00)
[2022-04-26] MEDS: IPRATROPIUM/ALBUTEROL SULFATE 3 ML SOLUTION IH SCH ×2 (06:00→11:49)
[2022-04-26 06:20] LABS: BASOPHILS % (AUTO) 0.2 % (0.0-5.0); HEMATOCRIT 23.7 % (42-54); LYMPHOCYTES % (AUTO) 5.5 % (21.0-51.0); MEAN CORPUSCULAR HEMOGLOBIN 34.8 pg (27.0-33.0); MEAN CORPUSCULAR HGB CONC 33.3 g/dL (32.0-36.0); MEAN CORPUSCULAR VOLUME 104.4 fL (79-99); MONOCYTES % (AUTO) 11.2 % (3.0-13.0); NUCLEATED RED BLOOD CELLS 0.4 % (0.0-0.19); PLATELET COUNT (AUTO) 35 K/uL (130-400); RED BLOOD CELL COUNT(AUTO) 2.27 MIL/uL (4.50-6.20); WHITE BLOOD COUNT (AUTO) 4.8 K/uL (4.8-10.8)
[2022-04-26 06:28] LABS: INR 2.16 (0.85-1.15); PROTHROMBIN TIME 22.5 SEC (9.6-11.6)
[2022-04-26 07:00] LABS: ALBUMIN 3.2 g/dL (3.5-5.0); CREATININE 1.5 mg/dL (0.5-1.5); POTASSIUM 3.7 mmol/L (3.5-5.1); TOTAL PROTEIN, SERUM 5.2 g/dL (6.0-8.3)
[2022-04-26] MEDS: MEROPENEM 1 GM VIAL IVP SCH ×2 (09:23→20:42)
[2022-04-26] MEDS: RIFAXIMIN 200 MG TABLET PO SCH ×2 (09:23→20:43)
[2022-04-26] MEDS: OCTREOTIDE ACETATE 100 MCG/ML AMP IV SCH ×3 (09:23→20:42)
[2022-04-26] MEDS: PANTOPRAZOLE 40 MG/VIAL IVP SCH ×2 (09:23→20:42)
[2022-04-26] MEDS: HYDROCORTISONE SOD SUCCINATE 100 MG/2 ML VIAL IV SCH ×4 (09:23→20:43)
[2022-04-26] MEDS: MIDODRINE HCL 5 MG TABLET PO SCH ×3 (09:23→20:43)
[2022-04-27] VITALS (51 sets, daily range): BP systolic 86–138; BP diastolic 29–113
[2022-04-27] MEDS: LACTULOSE 20 GM/30 ML UDCUP PO SCH ×4 (00:07→17:10)
[2022-04-27] MEDS: IPRATROPIUM/ALBUTEROL SULFATE 3 ML SOLUTION IH SCH ×4 (02:22→18:55)
[2022-04-27 04:29] LABS: ABG BASE EXCESS -1.5 mmol/L (-2.0-3.0); ABG HCO3 21.7 mmol/L (21.0-28.0); ABG PCO2 33 mmHg (35-48)
[2022-04-27] MEDS: VANCOMYCIN 1G/250ML KIT 250 ML IV SCH ×3 (06:00→20:00)
[2022-04-27 06:16] LABS: HEMATOCRIT 24.9 % (42-54); MEAN CORPUSCULAR HEMOGLOBIN 34.6 pg (27.0-33.0); MEAN CORPUSCULAR HGB CONC 32.5 g/dL (32.0-36.0); MEAN CORPUSCULAR VOLUME 106.4 fL (79-99); MONOCYTES % (AUTO) 9.6 % (3.0-13.0); NEUTROPHILS % (AUTO) 83.8 % (40.0-77.0); PLATELET COUNT (AUTO) 34 K/uL (130-400); RED BLOOD CELL COUNT(AUTO) 2.34 MIL/uL (4.50-6.20); RED CELL DISTRIBUTION WIDTH 23.7 % (11.0-15.5); WHITE BLOOD COUNT (AUTO) 4.4 K/uL (4.8-10.8)
[2022-04-27 06:35] LABS: CREATININE 1.3 mg/dL (0.5-1.5); POTASSIUM 3.2 mmol/L (3.5-5.1)
[2022-04-27] MEDS: POTASSIUM CHLORIDE 10% ELIXIR 20 MEQ/15 ML UDCUP PO PRN ×2 (06:48→06:49)
[2022-04-27] MEDS: MEROPENEM 1 GM VIAL IVP SCH ×2 (07:31→21:15)
[2022-04-27] MEDS: MIDODRINE HCL 5 MG TABLET PO SCH ×3 (08:19→21:15)
[2022-04-27] MEDS: OCTREOTIDE ACETATE 100 MCG/ML AMP IV SCH ×3 (08:19→21:18)
[2022-04-27] MEDS: PANTOPRAZOLE 40 MG/VIAL IVP SCH ×2 (08:19→21:15)
[2022-04-27] MEDS: RIFAXIMIN 200 MG TABLET PO SCH ×2 (08:19→21:15)
[2022-04-27] MEDS: HYDROCORTISONE SOD SUCCINATE 100 MG/2 ML VIAL IV SCH ×4 (08:19→21:15)
[2022-04-27] MEDS: FUROSEMIDE 40MG VIAL IV SCH (15:59)
[2022-04-27] MEDS ORDERED: PHARMACY COMMUNICATION MISC SCH (19:00)
[2022-04-28] VITALS (24 sets, daily range): BP systolic 104–151; BP diastolic 61–82
[2022-04-28] MEDS: IPRATROPIUM/ALBUTEROL SULFATE 3 ML SOLUTION IH SCH ×5 (00:39→23:35)
[2022-04-28 04:03] LABS: ABG BASE EXCESS -1.3 mmol/L (-2.0-3.0); ABG HCO3 22.8 mmol/L (21.0-28.0); ABG OXYGEN SATURATION 93.9 % (95.0-99.0); ABG PCO2 36 mmHg (35-48)
[2022-04-28 04:48] LABS: BASOPHILS % (AUTO) 0.2 % (0.0-5.0); HEMATOCRIT 27.1 % (42-54); LYMPHOCYTES % (AUTO) 3.3 % (21.0-51.0); MEAN CORPUSCULAR HEMOGLOBIN 35.2 pg (27.0-33.0); MEAN CORPUSCULAR HGB CONC 32.8 g/dL (32.0-36.0); MEAN CORPUSCULAR VOLUME 107.1 fL (79-99); MONOCYTES % (AUTO) 8.7 % (3.0-13.0); NUCLEATED RED BLOOD CELLS 0.4 % (0.0-0.19); PLATELET COUNT (AUTO) 32 K/uL (130-400); RED BLOOD CELL COUNT(AUTO) 2.53 MIL/uL (4.50-6.20); WHITE BLOOD COUNT (AUTO) 5.4 K/uL (4.8-10.8)
[2022-04-28 05:02] LABS: CREATININE 1.3 mg/dL (0.5-1.5); POTASSIUM 3.1 mmol/L (3.5-5.1)
[2022-04-28] MEDS: FUROSEMIDE 40MG VIAL IV SCH ×2 (05:02→14:28)
[2022-04-28] MEDS: POTASSIUM CHLORIDE 10% ELIXIR 20 MEQ/15 ML UDCUP PO PRN ×3 (05:11→10:53)
[2022-04-28] MEDS: LACTULOSE 20 GM/30 ML UDCUP PO SCH ×4 (06:49→17:22)
[2022-04-28] MEDS: MEROPENEM 1 GM VIAL IVP SCH ×2 (08:09→20:33)
[2022-04-28] MEDS: PANTOPRAZOLE 40 MG/VIAL IVP SCH ×2 (08:09→20:31)
[2022-04-28] MEDS: RIFAXIMIN 200 MG TABLET PO SCH ×2 (08:10→22:10)
[2022-04-28] MEDS: MIDODRINE HCL 5 MG TABLET PO SCH ×3 (08:11→20:32)
[2022-04-28] MEDS: HYDROCORTISONE SOD SUCCINATE 100 MG/2 ML VIAL IV SCH ×4 (08:11→20:32)
[2022-04-28] MEDS: OCTREOTIDE ACETATE 100 MCG/ML AMP IV SCH ×3 (08:14→22:10)
[2022-04-28] MEDS: VANCOMYCIN 1G/250ML KIT 250 ML IV SCH (20:32)
[2022-04-29] VITALS (29 sets, daily range): BP systolic 79–168; BP diastolic 47–92
[2022-04-29] MEDS: LACTULOSE 20 GM/30 ML UDCUP PO SCH ×5 (00:20→23:24)
[2022-04-29] MEDS: FUROSEMIDE 40MG VIAL IV SCH ×2 (03:30→16:24)
[2022-04-29 03:31] LABS: ABG BASE EXCESS -1.4 mmol/L (-2.0-3.0); ABG HCO3 22.5 mmol/L (21.0-28.0); ABG OXYGEN SATURATION 98.5 % (95.0-99.0); ABG PCO2 36 mmHg (35-48)
[2022-04-29 04:25] LABS: HEMATOCRIT 28.2 % (42-54); LYMPHOCYTES % (AUTO) 3.4 % (21.0-51.0); MEAN CORPUSCULAR HEMOGLOBIN 35.6 pg (27.0-33.0); MONOCYTES % (AUTO) 6.7 % (3.0-13.0); NEUTROPHILS % (AUTO) 88.2 % (40.0-77.0); NUCLEATED RED BLOOD CELLS 0.3 % (0.0-0.19); PLATELET COUNT (AUTO) 28 K/uL (130-400); RED BLOOD CELL COUNT(AUTO) 2.61 MIL/uL (4.50-6.20); RED CELL DISTRIBUTION WIDTH 24.8 % (11.0-15.5); WHITE BLOOD COUNT (AUTO) 6.9 K/uL (4.8-10.8)
[2022-04-29 04:39] LABS: CREATININE 1.4 mg/dL (0.5-1.5)
[2022-04-29] MEDS: POTASSIUM CHLORIDE 10% ELIXIR 20 MEQ/15 ML UDCUP PO PRN ×5 (05:05→23:23)
[2022-04-29] MEDS: IPRATROPIUM/ALBUTEROL SULFATE 3 ML SOLUTION IH SCH ×4 (06:26→23:35)
[2022-04-29] MEDS: DEXTROSE 5%-WATER 1,000 ML IV SCH ×2 (08:38→21:16)
[2022-04-29] MEDS: MEROPENEM 1 GM VIAL IVP SCH ×2 (08:39→20:56)
[2022-04-29] MEDS: PANTOPRAZOLE 40 MG/VIAL IVP SCH ×2 (08:39→20:57)
[2022-04-29] MEDS: HYDROCORTISONE SOD SUCCINATE 100 MG/2 ML VIAL IV SCH ×4 (08:40→20:58)
[2022-04-29] MEDS: MIDODRINE HCL 5 MG TABLET PO SCH ×3 (08:43→20:58)
[2022-04-29] MEDS: RIFAXIMIN 200 MG TABLET PO SCH ×2 (08:49→21:12)
[2022-04-29] MEDS: OCTREOTIDE ACETATE 100 MCG/ML AMP IV SCH ×3 (08:49→20:58)
[2022-04-29] MEDS: VANCOMYCIN 1G/250ML KIT 250 ML IV SCH (20:58)
[2022-04-30] VITALS (33 sets, daily range): BP systolic 99–130; BP diastolic 40–94
[2022-04-30] MEDS: POTASSIUM CHLORIDE 10% ELIXIR 20 MEQ/15 ML UDCUP PO PRN ×7 (00:38→22:33)
[2022-04-30] MEDS: FUROSEMIDE 40MG VIAL IV SCH ×2 (02:26→17:31)
[2022-04-30 03:33] LABS: ABG BASE EXCESS -0.9 mmol/L (-2.0-3.0); ABG HCO3 23.1 mmol/L (21.0-28.0); ABG OXYGEN SATURATION 98.3 % (95.0-99.0); ABG PCO2 36 mmHg (35-48)
[2022-04-30 04:34] LABS: BASOPHILS % (AUTO) 0.1 % (0.0-5.0); HEMATOCRIT 28.4 % (42-54); LYMPHOCYTES % (AUTO) 1.7 % (21.0-51.0); MEAN CORPUSCULAR HGB CONC 31.3 g/dL (32.0-36.0); MEAN CORPUSCULAR VOLUME 111.8 fL (79-99); MONOCYTES % (AUTO) 5.1 % (3.0-13.0); NEUTROPHILS % (AUTO) 91.9 % (40.0-77.0); NUCLEATED RED BLOOD CELLS 0.3 % (0.0-0.19); PLATELET COUNT (AUTO) 46 K/uL (130-400); RED BLOOD CELL COUNT(AUTO) 2.54 MIL/uL (4.50-6.20); RED CELL DISTRIBUTION WIDTH 25.2 % (11.0-15.5); WHITE BLOOD COUNT (AUTO) 8.7 K/uL (4.8-10.8)
[2022-04-30 05:03] LABS: ALBUMIN 2.6 g/dL (3.5-5.0); CREATININE 1.2 mg/dL (0.5-1.5); POTASSIUM 3.1 mmol/L (3.5-5.1); TOTAL PROTEIN, SERUM 5.2 g/dL (6.0-8.3)
[2022-04-30 05:19] LABS: PLATELET MORPHOLOGY COMMENT DECREASED
[2022-04-30] MEDS: IPRATROPIUM/ALBUTEROL SULFATE 3 ML SOLUTION IH SCH ×4 (06:30→23:29)
[2022-04-30] MEDS: LACTULOSE 20 GM/30 ML UDCUP PO SCH ×3 (07:05→17:31)
[2022-04-30] MEDS: MIDODRINE HCL 5 MG TABLET PO SCH ×3 (07:49→20:39)
[2022-04-30] MEDS: PANTOPRAZOLE 40 MG/VIAL IVP SCH ×2 (07:50→20:39)
[2022-04-30] MEDS: HYDROCORTISONE SOD SUCCINATE 100 MG/2 ML VIAL IV SCH ×4 (07:50→20:40)
[2022-04-30] MEDS: MEROPENEM 1 GM VIAL IVP SCH ×2 (07:50→20:38)
[2022-04-30] MEDS: OCTREOTIDE ACETATE 100 MCG/ML AMP IV SCH ×3 (07:50→20:39)
[2022-04-30] MEDS: DEXTROSE 5%-WATER 1,000 ML IV SCH ×2 (07:54→20:40)
[2022-04-30] MEDS ORDERED: FUROSEMIDE 40MG VIAL IV ONE (12:00)
[2022-04-30 12:05] LABS: ABG BASE EXCESS 0.6 mmol/L (-2.0-3.0); ABG HCO3 25.4 mmol/L (21.0-28.0); ABG OXYGEN SATURATION 96.5 % (95.0-99.0); ABG PCO2 41 mmHg (35-48)
[2022-04-30] MEDS ORDERED: INSULIN HUMULIN R 100 UNIT/ML 3ML SQ ONE (12:30)
[2022-04-30] MEDS: RIFAXIMIN 200 MG TABLET PO SCH ×2 (13:51→20:42)
[2022-04-30] MEDS: BACITRACIN 28.4 GM OINT TP SCH (19:30)
[2022-04-30] MEDS ORDERED: PEG 3350/NA SULF,BICARB,CL/KCL 4000 ML SOLN PO SCH (20:00)
[2022-04-30] MEDS: VANCOMYCIN 1G/250ML KIT 250 ML IV SCH (20:38)
[2022-05-01] VITALS (41 sets, daily range): BP systolic 82–148; BP diastolic 49–90
[2022-05-01] MEDS: LACTULOSE 20 GM/30 ML UDCUP PO SCH ×5 (00:54→23:46)
[2022-05-01] MEDS: BACITRACIN 28.4 GM OINT TP SCH ×3 (03:30→18:02)
[2022-05-01 03:48] LABS: HEMATOCRIT 27.8 % (42-54); LYMPHOCYTES % (AUTO) 1.5 % (21.0-51.0); MEAN CORPUSCULAR HEMOGLOBIN 35.2 pg (27.0-33.0); MEAN CORPUSCULAR VOLUME 109.9 fL (79-99); NEUTROPHILS % (AUTO) 92.6 % (40.0-77.0); NUCLEATED RED BLOOD CELLS 0.3 % (0.0-0.19); PLATELET COUNT (AUTO) 30 K/uL (130-400); RED BLOOD CELL COUNT(AUTO) 2.53 MIL/uL (4.50-6.20); RED CELL DISTRIBUTION WIDTH 24.8 % (11.0-15.5); WHITE BLOOD COUNT (AUTO) 10.3 K/uL (4.8-10.8)
[2022-05-01 04:03] LABS: CREATININE 1.1 mg/dL (0.5-1.5)
[2022-05-01] MEDS: DEXTROSE 5%-WATER 1,000 ML IV SCH ×2 (04:17→11:07)
[2022-05-01] MEDS: FUROSEMIDE 40MG VIAL IV SCH ×2 (04:18→17:52)
[2022-05-01 04:26] LABS: POTASSIUM 2.8 mmol/L (3.5-5.1)
[2022-05-01] MEDS: POTASSIUM CHLORIDE 10% ELIXIR 20 MEQ/15 ML UDCUP PO PRN ×3 (04:42→08:01)
[2022-05-01] MEDS: IPRATROPIUM/ALBUTEROL SULFATE 3 ML SOLUTION IH SCH ×3 (06:28→19:20)
[2022-05-01] MEDS: MEROPENEM 1 GM VIAL IVP SCH ×2 (08:00→20:55)
[2022-05-01] MEDS: RIFAXIMIN 200 MG TABLET PO SCH ×2 (08:01→21:00)
[2022-05-01] MEDS: PANTOPRAZOLE 40 MG/VIAL IVP SCH ×2 (08:01→20:55)
[2022-05-01] MEDS: OCTREOTIDE ACETATE 100 MCG/ML AMP IV SCH ×3 (08:05→20:55)
[2022-05-01] MEDS: HYDROCORTISONE SOD SUCCINATE 100 MG/2 ML VIAL IV SCH ×3 (08:05→20:56)
[2022-05-01] MEDS: MIDODRINE HCL 5 MG TABLET PO SCH ×3 (08:05→20:55)
[2022-05-01] MEDS ORDERED: LIDOCAINE HCL-MPF 1% 2ML VIAL IV PRN ×2 (08:30→10:30)
[2022-05-01 09:46] LABS: MAGNESIUM 1.9 mg/dL (1.80-2.40)
[2022-05-01 09:50] LABS: POTASSIUM 2.8 mmol/L (3.5-5.1)
[2022-05-01] MEDS: POTASSIUM CHLORIDE 20MEQ/100ML 100 ML IV PRN ×3 (10:47→17:52)
[2022-05-01 16:00] LABS: MAGNESIUM 2.4 mg/dL (1.80-2.40); POTASSIUM 3.2 mmol/L (3.5-5.1)
[2022-05-01] MEDS: VANCOMYCIN 1G/250ML KIT 250 ML IV SCH (20:55)
[2022-05-02] VITALS (46 sets, daily range): BP systolic 91–119; BP diastolic 52–91
[2022-05-02] MEDS: POTASSIUM CHLORIDE 10% ELIXIR 20 MEQ/15 ML UDCUP PO PRN ×3 (00:59→04:23)
[2022-05-02] MEDS: FUROSEMIDE 40MG VIAL IV SCH ×2 (04:24→14:30)
[2022-05-02] MEDS: BACITRACIN 28.4 GM OINT TP SCH ×3 (04:25→20:47)
[2022-05-02] MEDS: IPRATROPIUM/ALBUTEROL SULFATE 3 ML SOLUTION IH SCH ×5 (06:29→23:34)
[2022-05-02] MEDS: LACTULOSE 20 GM/30 ML UDCUP PO SCH ×4 (06:38→23:39)
[2022-05-02 08:10] LABS: HEMATOCRIT 31.4 % (42-54); MEAN CORPUSCULAR HEMOGLOBIN 35.4 pg (27.0-33.0); MEAN CORPUSCULAR HGB CONC 31.5 g/dL (32.0-36.0); MEAN CORPUSCULAR VOLUME 112.1 fL (79-99); NUCLEATED RED BLOOD CELLS 0.3 % (0.0-0.19); PLATELET COUNT (AUTO) 31 K/uL (130-400); RED CELL DISTRIBUTION WIDTH 25.3 % (11.0-15.5); WHITE BLOOD COUNT (AUTO) 15.6 K/uL (4.8-10.8)
[2022-05-02 08:25] LABS: ALBUMIN 2.4 g/dL (3.5-5.0); CREATININE 1.3 mg/dL (0.5-1.5); POTASSIUM 3.7 mmol/L (3.5-5.1); TOTAL PROTEIN, SERUM 5.2 g/dL (6.0-8.3)
[2022-05-02] MEDS: PANTOPRAZOLE 40 MG/VIAL IVP SCH ×2 (08:53→20:43)
[2022-05-02] MEDS: MIDODRINE HCL 5 MG TABLET PO SCH ×3 (08:54→20:43)
[2022-05-02] MEDS: HYDROCORTISONE SOD SUCCINATE 100 MG/2 ML VIAL IV SCH (08:54)
[2022-05-02] MEDS: MEROPENEM 1 GM VIAL IVP SCH ×2 (08:54→20:44)
[2022-05-02] MEDS: OCTREOTIDE ACETATE 100 MCG/ML AMP IV SCH ×3 (08:58→20:43)
[2022-05-02] MEDS ORDERED: DEXTROSE 50%-WATER 50 ML DISP.SYRIN IV SCH (09:00)
[2022-05-02 09:52] LABS: BAND NEUTROPHILS % (MANUAL) 13 % (0-2); LYMPHOCYTES % (MANUAL) 4 % (22-44); MONOCYTES % (MANUAL) 3 % (2-9); SEGMENTED NEUTROPHILS % 80 % (40-70)
[2022-05-02 09:53] LABS: MAN.DIFF COMMENT-IMPRESSION MANUAL DIFFERENTIAL; PLATELET MORPHOLOGY COMMENT MARKED DEC
[2022-05-02] MEDS: RIFAXIMIN 550 MG TABLET PO SCH ×2 (11:38→20:44)
[2022-05-02] MEDS: INSULIN HUMULIN R 100 UNIT/ML 3ML SQ SCH ×3 (11:39→20:45)
[2022-05-02 11:46] LABS: INR > 8.00 (0.85-1.15); PROTHROMBIN TIME > 90.0 SEC (9.6-11.6)
[2022-05-02 13:10] LABS: CREATININE 1.4 mg/dL (0.5-1.5); POTASSIUM 3.9 mmol/L (3.5-5.1)
[2022-05-02] MEDS ORDERED: PHYTONADIONE 10 MG in 0.9%NACL 50ML 50 ML IVPB SCH ×2 (13:30→14:00)
[2022-05-02] MEDS: METOLAZONE 2.5 MG TABLET PO SCH (17:53)
[2022-05-02] MEDS: DEXTROSE 5%-WATER 1,000 ML IV SCH (20:47)
[2022-05-02 23:13] LABS: ABG OXYGEN SATURATION 93.4 % (95.0-99.0); ABG PCO2 45 mmHg (35-48)
[2022-05-03] VITALS (68 sets, daily range): BP systolic 76–136; BP diastolic 34–89
[2022-05-03] MEDS: BACITRACIN 28.4 GM OINT TP SCH ×3 (03:30→19:36)
[2022-05-03 05:18] LABS: EOSINOPHILS % (AUTO) 1.4 % (0.0-8.0); HEMATOCRIT 27.6 % (42-54); LYMPHOCYTES % (AUTO) 3.5 % (21.0-51.0); MEAN CORPUSCULAR HEMOGLOBIN 35.3 pg (27.0-33.0); MEAN CORPUSCULAR HGB CONC 32.6 g/dL (32.0-36.0); MEAN CORPUSCULAR VOLUME 108.2 fL (79-99); MONOCYTES % (AUTO) 6.2 % (3.0-13.0); NEUTROPHILS % (AUTO) 87.8 % (40.0-77.0); NUCLEATED RED BLOOD CELLS 0.3 % (0.0-0.19); PLATELET COUNT (AUTO) 23 K/uL (130-400); RED BLOOD CELL COUNT(AUTO) 2.55 MIL/uL (4.50-6.20); RED CELL DISTRIBUTION WIDTH 25.1 % (11.0-15.5)
[2022-05-03 05:30] LABS: INR 2.37 (0.85-1.15); PROTHROMBIN TIME 24.6 SEC (9.6-11.6)
[2022-05-03 05:51] LABS: ALBUMIN 2.4 g/dL (3.5-5.0); CREATININE 1.2 mg/dL (0.5-1.5)
[2022-05-03 06:08] LABS: POTASSIUM 2.9 mmol/L (3.5-5.1)
[2022-05-03] MEDS: POTASSIUM CHLORIDE 10% ELIXIR 20 MEQ/15 ML UDCUP PO PRN (06:32)
[2022-05-03] MEDS: LACTULOSE 20 GM/30 ML UDCUP PO SCH ×4 (06:32→23:06)
[2022-05-03] MEDS: INSULIN HUMULIN R 100 UNIT/ML 3ML SQ SCH ×4 (06:32→21:04)
[2022-05-03] MEDS: POTASSIUM CHLORIDE 20MEQ/100ML 100 ML IV PRN ×2 (06:34→09:16)
[2022-05-03] MEDS: IPRATROPIUM/ALBUTEROL SULFATE 3 ML SOLUTION IH SCH ×4 (06:48→23:32)
[2022-05-03] MEDS: MIDODRINE HCL 5 MG TABLET PO SCH ×3 (08:16→20:51)
[2022-05-03] MEDS: METOLAZONE 2.5 MG TABLET PO SCH (08:16)
[2022-05-03] MEDS: OCTREOTIDE ACETATE 100 MCG/ML AMP IV SCH ×3 (08:16→20:51)
[2022-05-03] MEDS: RIFAXIMIN 550 MG TABLET PO SCH ×2 (08:16→20:52)
[2022-05-03] MEDS: METOCLOPRAMIDE 10 MG/2 ML VIAL IVP SCH ×2 (08:17→20:52)
[2022-05-03] MEDS: MEROPENEM 1 GM VIAL IVP SCH ×2 (08:17→20:51)
[2022-05-03] MEDS: PANTOPRAZOLE 40 MG/VIAL IVP SCH ×2 (08:17→20:52)
[2022-05-03] MEDS: HYDROCORTISONE SOD SUCCINATE 100 MG/2 ML VIAL IV SCH (08:17)
[2022-05-03] MEDS ORDERED: PHYTONADIONE 10 MG in 0.9%NACL 50ML 50 ML IVPB SCH (09:00)
[2022-05-03] MEDS ORDERED: NOREPINEPHRIN 8MG/250ML NS PMX 250 ML IV ONE (12:21)
[2022-05-03] MEDS: NOREPINEPHRIN 8MG/250ML NS PMX 250 ML IV SCH (12:29)
[2022-05-03] MEDS ORDERED: NOREPINEPHRINE 8MG/NS 250ML PREMIX IV SCH (12:30)
[2022-05-03] MEDS ORDERED: NOREPINEPHRIN 4MG/NS 250ML 250 ML IV SCH (12:30)
[2022-05-03] MEDS: ALBUMIN (HUMAN) 25% 100 ML IV SCH ×3 (12:58→23:51)
[2022-05-03] MEDS: PHYTONADIONE 10 MG in 0.9%NACL 50ML 50 ML IVPB SCH (14:36)
[2022-05-03] MEDS: DEXTROSE 5%-WATER 1,000 ML IV SCH (15:42)
[2022-05-04] VITALS (87 sets, daily range): BP systolic 72–156; BP diastolic 24–108
[2022-05-04] MEDS: BACITRACIN 28.4 GM OINT TP SCH ×3 (03:30→20:33)
[2022-05-04 05:19] LABS: EOSINOPHILS % (AUTO) 4.8 % (0.0-8.0); HEMATOCRIT 22.6 % (42-54); LYMPHOCYTES % (AUTO) 6.3 % (21.0-51.0); MEAN CORPUSCULAR HEMOGLOBIN 34.6 pg (27.0-33.0); MEAN CORPUSCULAR HGB CONC 31.4 g/dL (32.0-36.0); MEAN CORPUSCULAR VOLUME 110.2 fL (79-99); MONOCYTES % (AUTO) 8.6 % (3.0-13.0); NEUTROPHILS % (AUTO) 78.8 % (40.0-77.0); NUCLEATED RED BLOOD CELLS 0.4 % (0.0-0.19); PLATELET COUNT (AUTO) 21 K/uL (130-400); RED BLOOD CELL COUNT(AUTO) 2.05 MIL/uL (4.50-6.20); RED CELL DISTRIBUTION WIDTH 25.2 % (11.0-15.5); WHITE BLOOD COUNT (AUTO) 4.8 K/uL (4.8-10.8)
[2022-05-04 06:04] LABS: ALBUMIN 3.3 g/dL (3.5-5.0); CREATININE 1.4 mg/dL (0.5-1.5); POTASSIUM 3.2 mmol/L (3.5-5.1)
[2022-05-04] MEDS: ALBUMIN (HUMAN) 25% 100 ML IV SCH ×3 (06:41→20:31)
[2022-05-04] MEDS: LACTULOSE 20 GM/30 ML UDCUP PO SCH ×3 (06:41→18:46)
[2022-05-04] MEDS: POTASSIUM CHLORIDE 10% ELIXIR 20 MEQ/15 ML UDCUP PO PRN (06:41)
[2022-05-04] MEDS: INSULIN HUMULIN R 100 UNIT/ML 3ML SQ SCH ×4 (06:42→20:33)
[2022-05-04] MEDS: IPRATROPIUM/ALBUTEROL SULFATE 3 ML SOLUTION IH SCH ×4 (06:48→23:35)
[2022-05-04 07:29] LABS: INR 2.47 (0.85-1.15); PROTHROMBIN TIME 25.6 SEC (9.6-11.6)
[2022-05-04] MEDS ORDERED: MIDODRINE HCL 5 MG TABLET ONE (07:40)
[2022-05-04] MEDS: MEROPENEM 1 GM VIAL IVP SCH ×2 (07:55→20:32)
[2022-05-04] MEDS: METOCLOPRAMIDE 10 MG/2 ML VIAL IVP SCH ×2 (07:55→20:32)
[2022-05-04] MEDS: RIFAXIMIN 550 MG TABLET PO SCH ×2 (07:55→20:32)
[2022-05-04] MEDS: PANTOPRAZOLE 40 MG/VIAL IVP SCH ×2 (07:55→20:32)
[2022-05-04] MEDS: MIDODRINE HCL 5 MG TABLET PO SCH ×3 (07:55→20:32)
[2022-05-04] MEDS: METOLAZONE 2.5 MG TABLET PO SCH (07:55)
[2022-05-04] MEDS: HYDROCORTISONE SOD SUCCINATE 100 MG/2 ML VIAL IV SCH (07:55)
[2022-05-04] MEDS: OCTREOTIDE ACETATE 100 MCG/ML AMP IV SCH ×3 (07:58→20:32)
[2022-05-04] MEDS: DEXTROSE 5%-WATER 1,000 ML IV SCH (11:00)
[2022-05-04] MEDS: PHYTONADIONE 10 MG in 0.9%NACL 50ML 50 ML IVPB SCH (14:06)
[2022-05-04] MEDS ORDERED: ALBUMIN (HUMAN) 25% 100 ML IV ONE (14:38)
[2022-05-04] MEDS: PHARMACY COMMUNICATION MISC SCH ×2 (15:30→16:04)
[2022-05-04 15:51] LABS: HEMATOCRIT 25.2 % (42-54); MEAN CORPUSCULAR HGB CONC 31.3 g/dL (32.0-36.0); MEAN CORPUSCULAR VOLUME 111.5 fL (79-99); NUCLEATED RED BLOOD CELLS 0.5 % (0.0-0.19); PLATELET COUNT (AUTO) 31 K/uL (130-400); RED BLOOD CELL COUNT(AUTO) 2.26 MIL/uL (4.50-6.20); RED CELL DISTRIBUTION WIDTH 25.6 % (11.0-15.5); WHITE BLOOD COUNT (AUTO) 5.9 K/uL (4.8-10.8)
[2022-05-04] MEDS ORDERED: ALBUMIN (HUMAN) 25% 100 ML IV SCH (16:00)
[2022-05-04 16:58] LABS: BAND NEUTROPHILS % (MANUAL) 4 % (0-2); EOSINOPHILS % (MANUAL) 5 % (1-6); LYMPHOCYTES % (MANUAL) 7 % (22-44); MAN.DIFF COMMENT-IMPRESSION MANUAL DIFFERENTIAL; MONOCYTES % (MANUAL) 7 % (2-9); SEGMENTED NEUTROPHILS % 77 % (40-70)
[2022-05-04 16:59] LABS: PLATELET MORPHOLOGY COMMENT DECREASED
[2022-05-04 17:35] LABS: BODY FLUID RBC 4188 /cu. mm.; BODY FLUID WBC 74 /cu. mm.
[2022-05-04 18:04] LABS: BF LYMPHOCYTE 74 %; BF MESOTHELIAL 18 %
[2022-05-04] MEDS: NOREPINEPHRIN 8MG/250ML NS PMX 250 ML IV SCH (18:47)
[2022-05-04 20:10] LABS: APPEARANCE BODY FLUID CLOUDY (CLEAR); COLOR,BODY FLUID AMBER (LT YELLOW); TOTAL VOLUME,BODY FLUID 3724.5 mL
[2022-05-04 20:11] LABS: SPECIMENTYPE,BODY FLUID PARACENTESIS
[2022-05-04] MEDS ORDERED: IBUPROFEN 600 MG TABLET PO ONE (21:30)
[2022-05-04] MEDS: POTASSIUM CHLORIDE 20MEQ/100ML 100 ML IV PRN (22:17)
[2022-05-05] VITALS (67 sets, daily range): BP systolic 81–131; BP diastolic 48–77
[2022-05-05] MEDS: LACTULOSE 20 GM/30 ML UDCUP PO SCH ×4 (00:19→20:10)
[2022-05-05] MEDS: ALBUMIN (HUMAN) 25% 100 ML IV SCH ×4 (03:59→19:51)
[2022-05-05] MEDS: BACITRACIN 28.4 GM OINT TP SCH ×3 (04:00→20:10)
[2022-05-05 05:52] LABS: EOSINOPHILS % (AUTO) 4.6 % (0.0-8.0); LYMPHOCYTES % (AUTO) 8.1 % (21.0-51.0); MEAN CORPUSCULAR HEMOGLOBIN 34.9 pg (27.0-33.0); MEAN CORPUSCULAR VOLUME 112.9 fL (79-99); MONOCYTES % (AUTO) 11.4 % (3.0-13.0); NEUTROPHILS % (AUTO) 75.1 % (40.0-77.0); PLATELET COUNT (AUTO) 27 K/uL (130-400); RED BLOOD CELL COUNT(AUTO) 1.86 MIL/uL (4.50-6.20); RED CELL DISTRIBUTION WIDTH 25.8 % (11.0-15.5); WHITE BLOOD COUNT (AUTO) 4.8 K/uL (4.8-10.8)
[2022-05-05 06:03] LABS: INR 2.55 (0.85-1.15); PROTHROMBIN TIME 26.4 SEC (9.6-11.6)
[2022-05-05 06:32] LABS: ALBUMIN 4.1 g/dL (3.5-5.0); CREATININE 1.1 mg/dL (0.5-1.5); POTASSIUM 3.3 mmol/L (3.5-5.1); TOTAL PROTEIN, SERUM 5.4 g/dL (6.0-8.3)
[2022-05-05] MEDS: IPRATROPIUM/ALBUTEROL SULFATE 3 ML SOLUTION IH SCH ×3 (06:46→18:54)
[2022-05-05] MEDS: POTASSIUM CHLORIDE 20MEQ/100ML 100 ML IV PRN ×2 (06:53→08:57)
[2022-05-05] MEDS: INSULIN HUMULIN R 100 UNIT/ML 3ML SQ SCH ×4 (07:30→21:00)
[2022-05-05] MEDS: DEXTROSE 5%-WATER 1,000 ML IV SCH ×2 (07:35→20:12)
[2022-05-05] MEDS: HYDROCORTISONE SOD SUCCINATE 100 MG/2 ML VIAL IV SCH (08:46)
[2022-05-05] MEDS: PANTOPRAZOLE 40 MG/VIAL IVP SCH ×2 (08:46→19:51)
[2022-05-05] MEDS: MIDODRINE HCL 5 MG TABLET PO SCH ×3 (08:46→19:51)
[2022-05-05] MEDS: METOCLOPRAMIDE 10 MG/2 ML VIAL IVP SCH ×2 (08:46→19:51)
[2022-05-05] MEDS: RIFAXIMIN 550 MG TABLET PO SCH ×2 (08:46→19:51)
[2022-05-05] MEDS: MEROPENEM 1 GM VIAL IVP SCH ×2 (08:46→19:52)
[2022-05-05] MEDS: METOLAZONE 2.5 MG TABLET PO SCH (08:46)
[2022-05-05] MEDS: OCTREOTIDE ACETATE 100 MCG/ML AMP IV SCH ×3 (08:50→19:51)
[2022-05-05] MEDS: PHYTONADIONE 10 MG in 0.9%NACL 50ML 50 ML IVPB SCH (14:16)
[2022-05-05 14:19] LABS: HEMATOCRIT 27.1 % (42-54)
== END 2022-05-05 23:00 | disposition short-term general hospital (02) | DRG 207 ==
LOC: EDH 04:57 → EDHIP 08:02 → 3BH 11:00 → 2CV 04-22 19:32 → 2CH 04-23 06:52
PROVIDERS: ADMIT Internal Medicine; ATTEND Internal Medicine
PROC: 0W9B30Z Drainage of Left Pleural Cavity with Drainage Device, Percutaneous Approach (ICD-10-PCS; principal; 2022-04-21)
PROC: 5A1955Z Respiratory Ventilation, Greater than 96 Consecutive Hours (ICD-10-PCS; 2022-04-22)
PROC: 0BH17EZ Insertion of Endotracheal Airway into Trachea, Via Natural or Artificial Opening (ICD-10-PCS; 2022-04-22)
PROC: 05HY33Z Insertion of Infusion Device into Upper Vein, Percutaneous Approach (ICD-10-PCS; 2022-04-22)
PROC: 5A09357 Assistance with Respiratory Ventilation, Less than 24 Consecutive Hours, Continuous Positive Airway Pressure (ICD-10-PCS; 2022-04-30)
PROC: 5A09557 Assistance with Respiratory Ventilation, Greater than 96 Consecutive Hours, Continuous Positive Airway Pressure (ICD-10-PCS; 2022-05-02)
PROC: 0W9G3ZZ Drainage of Peritoneal Cavity, Percutaneous Approach (ICD-10-PCS; 2022-05-04)
DX: J96.01 Acute respiratory failure with hypoxia (principal); G93.41 Metabolic encephalopathy; A41.9 Sepsis, unspecified organism; K76.7 Hepatorenal syndrome; E43 Unspecified severe protein-calorie malnutrition; R65.21 Severe sepsis with septic shock; K65.2 Spontaneous bacterial peritonitis; J18.9 Pneumonia, unspecified organism; E87.1 Hypo-osmolality and hyponatremia; E87.21 Acute metabolic acidosis; N17.9 Acute kidney failure, unspecified; N30.00 Acute cystitis without hematuria; D68.9 Coagulation defect, unspecified; K92.2 Gastrointestinal hemorrhage, unspecified; D62 Acute posthemorrhagic anemia; E87.0 Hyperosmolality and hypernatremia; J90 Pleural effusion, not elsewhere classified; J98.11 Atelectasis; J93.9 Pneumothorax, unspecified; Z20.822 Contact with and (suspected) exposure to COVID-19; K70.31 Alcoholic cirrhosis of liver with ascites; D53.9 Nutritional anemia, unspecified; K76.82 Hepatic encephalopathy; D69.6 Thrombocytopenia, unspecified; B96.20 Unspecified Escherichia coli [E. coli] as the cause of diseases classified elsewhere; D75.89 Other specified diseases of blood and blood-forming organs; E16.2 Hypoglycemia, unspecified; E86.9 Volume depletion, unspecified; E87.5 Hyperkalemia; K70.40 Alcoholic hepatic failure without coma; S70.321A Blister (nonthermal), right thigh, initial encounter; Z87.891 Personal history of nicotine dependence; Z95.1 Presence of aortocoronary bypass graft; Z79.899 Other long term (current) drug therapy; Z68.28 Body mass index [BMI] 28.0-28.9, adult
CPT/HCPCS: 31500; 32551; 36415; 36430; 36600; 49082; 49083; 71045; 71250; 74176; 76705; 80048; 80053; 80202; 80305; 81001; 82042; 82140; 82330; 82435; 82803; 82945; 82947; 82948; 83540; 83550; 83605; 83615; 83690; 83735; 83986; 84100; 84132; 84145; 84157; 84295; 84484; 85007; 85014; 85018; 85025; 85378; 85384; 85610; 85730; 86850; 86900; 86901; 86923; 86927; 87040; 87071; 87077; 87088; 87116; 87186; 87205; 87206; 87635; 89051; 92610; 93005; 93970; 94002; 94003; 94640; 94660; 94664; A7048; C1751; C1894; C9113; G0378; J0171; J0330; J0610; J0696; J1720; J1815; J1940; J2185; J2354; J2704; J2765; J3010; J3370; J3430; J3475; J3480; J3490; J7030; J7070; J7131; P9012; P9016; P9017; P9034; P9045; P9046